=== PATIENT | male | born 1950 | race Caucasian/White ===

== ENCOUNTER 2022-11-03 21:03 | Emergency (ER) | payer OTHER ==
--- OUTSIDE RECORDS SUMMARY | 2022-11-03 21:07 | XMS REPORT | Continuity of Care Document ---
:1950 Author Organization [facility] t Address [address] [id number] Care Team Providers Name Role Phone Woo Stepan Primary Care Physician Markos Attending Clinician Unavailable Alejandrina CHENG, Joel Sykes Attending Clinician Unavailable ENRRIQUE GONZALEZ Attending Clinician Unavailable Jp Mondragon DO Attending Clinician Enrrique Gonzalez DO Attending Clinician Doctor Unassigned, Yantis Attending Clinician Unavailable BRENTON HODGSON Attending Clinician Unavailable Markos Admitting Clinician Unavailable ENRRIQUE GONZALEZ Admitting Clinician Unavailable Enrrique Gonzalez DO Admitting Clinician BRENTON HODGSON Admitting Clinician Unavailable Payers Payer Name Policy Type Policy Number Effective Date Expiration Date S [facility] [id number] 2021 (MEDICARE 00:00:00 REPLACEMENT HMO) Problems Condition Condition Condition Status Onset Resolution Last Treating Co mments Source Name Details Category Date Date Treatment Clinician Date Atypical Atypical Disease Active Unive rs chest pain chest pain 6-25 it y of 00:00: [place] 00 Medical Branch Essential Essential Disease Active Uni vers hypertensi hypertensi 6-25 it y of on on 00:00: [place] 00 Medical Branch Coronary Coronary Disease Active Unive rs artery artery 6-25 ity of disease disease 00:00: [place] involving involving 00 Medi eric yocha dehe yocha dehe Branch coronary coronary artery of artery of yocha dehe yocha dehe heart heart without without angina angina pectoris pectoris Dyslipidem Dyslipidem Disease Active U nivers ia ia 6-25 ity of 00:00: [place] 00 Medical Branch History of History of Disease Active U nivers atrial atrial 6-25 [place]y of fibrillati fibrill[place] Elevated Elevated Disease Active Unive rs brain brain 6-25 ity of natriureti natriureti [place] c peptide c peptide 00 Medi eric (BNP) (BNP) Branch level level Hyperlipid Hyperlipid Problem Active V illage emia emia 2-16 Family 00:00: Practic 00 e Hypertensi Hypertensi Problem Active [facility] ill[facility] ve ve 2-16 Family disorder Disorder 00:00: Practi c 00 e 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 -16 Fa tello e lung e Lung 00:00: Practic disease Disease 00 e No known No known Disease Unive rs active active ity of problems problems [facility] Allergies, Adverse Reactions, Alerts Allergy Allergy Status Severity Reaction(s) Onset Inactive Treating Comm ents Source Name Type Date Date Clinician NO KNOWN Drug Active Univers ALLERGIE Class ity of S [facility] Social History Social Habit Start Date Stop Date Quantity Comments Source History [facility] [place] Alcohol Frequency Medical Branch History [facility] [place] Alcohol Std Drinks Medica l Branch History [facility] [place] Alcohol Binge Medical Bra [facility] Tobacco use and 2022-03-08 2022-03-08 Never used [facility] exposure 00:00:00 00:00:00 Medical Branch Alcohol Comment 2022-03-08 2022-03-08 social [facility] 00:00:00 00:00:00 Medical Branch Education 2022-03-08 2022-03-[address] [facility] 00:00:00 00:00:00 Medical Branch Exposure to 2022-02-25 2022-03-[address] [facility] SARS-CoV-2 (event) 00:00:00 23:27:00 Medica l Branch Sex Ass[birth year] [facility] 00:00:00 00:00:00 Medical Branch Smoking Status Start Date Stop Date Source Never Smoker [facility] Unknown if ever smoked [facility] [place] [facility] Medications Ordered Filled Start Stop Current Ordering Indication Dosage Frequency Signature Comments Components Source Medication Medication Date Date Medication? Clinician (SIG) Name Name aspirin 81 2021- No [id number] 81mg Take 1 Univers mg chewable 6-27 - tablet by it y of tablet 00:00: 04:59 mouth [place] 00 :00 daily for Medical 30 days. Branch aspirin 81 2021- No [id number] 81mg Take 1 Univers mg chewable 6-27 - tablet by it y of tablet 00:00: 04:59 mouth [place] 00 :00 daily for Medical 30 days. Branch sulfur 2021- No [id number] 5mL 5 mL, Univ ers hexafluorid 03-09 Intravenou i ty of e microsphr 15:00: 13:45 s, ONCE, 1 [place] (LUMASON) 00 :00 dose, On Medica l injection 5 Sun Branch mL 03/09/22 at 1000, Routine
farm crew member approving Restricted medication : JERMAINE GAMEZ LISINOPRIL Yes 5mg Take 5 mg Un travis ORAL 6-26 by mouth ity of 11:47: daily. [address] HYDROcodone Yes 1{tbl} Take 1 Un travis -acetaminop 6-26 tablet by ity of hen 10-325 11:47: mouth [place] mg tablet 07 every 6 Medical (six) Branch hours as needed. LISINOPRIL Yes 5mg Take 5 mg Un travis ORAL 6-26 by mouth ity of 11:47: daily. [address] HYDROcodone Yes 1{tbl} Take 1 Un travis -acetaminop 6-26 tablet by ity of hen 10-325 11:47: mouth [place] mg tablet 07 every 6 Medical (six) Branch hours as needed. magnesium Yes [id number] 400mg Take 1 Univers oxide 400 6-26 tablet by ity o f mg (241.3 00:00: mouth 2 [place] mg 00 (two) Medical magnesium) times Branch tablet daily. benzonatate Yes [id number] 100mg Take 1 Univers 100 mg 6-26 capsule by ity of capsule 00:00: mouth [place] 00 every 8 Medical (eight) Branch hours as needed for Cough. magnesium 0 Yes [id number] 400mg Take 1 Univers oxide 400 6-26 tablet by ity o f mg (241.3 00:00: mouth 2 [place] mg 00 (two) Medical magnesium) times Branch tablet daily. benzonatate 0 Yes [id number] 100mg Take 1 Univers 100 mg 6-26 capsule by ity of capsule 00:00: mouth [place] 00 every 8 Medical (eight) Branch hours as needed for Cough. magnesium 0 2022- No [id number] 400mg Take 1 Univers oxide 400 6-26 06-26 tablet by ity of mg (241.3 00:00: 00:00 mouth 2 [place] mg 00 :00 (two) Medical magnesium) times Branch tablet daily for 30 days. enoxaparin 0 Yes 40mg 40 mg, Unive rs (LOVENOX) 6-25 Subcutaneo ity of injection 22:00: [place]ILY, [place] 00 First dose Medical on [facility] 03/08/22 at 1700, Until Discontinu ed, Routine aspirin 0 Yes 81mg 81 mg, Univers chewable 6-25 Oral, ity of tablet 81 14:00: DAILY, [place] mg 00 First dose Medical on [facility] 03/08/22 at 0900, Until Discontinu ed, Routine lisinopriL 0 Yes 5mg 5 mg, Univer s (PRINIVIL,Z 6-25 Oral, ity of ESTRIL) 14:00: DAILY, [place] tablet 5 mg 00 First dose Me dical on [facility] 03/08/22 at 0900, Until Discontinu ed sennosides- 0 Yes 1{tbl} 1 tablet, Univers docusate 6-25 Oral, BID, ity o f sodium 13:00: First dose [place] (SENOKOT-S) 00 on [facility] Medica l 8.6-50 mg 03/08/22 at Bran ch per tablet 0800, 1 tablet Until Discontinu ed, Routine ipratropium 0 Yes 3mL 3 mL, Unive rs -albuteroL 6-25 Inhalation ity of (DUONEB) 13:00: , QID, [place] 0.5 mg-3 00 First dose Medic al mg(2.5 mg on [facility] Branch base)/3 mL 6/25/22 at nebulizer 0800, solution 3 Until mL Discontinu ed, Routine furosemide 2021- No 20mg 20 mg, [facility] ers (LASIX) 03-08 Slow IV ity of injection 13:00: 13:55 Push, [place] 20 mg 00 :00 ONCE, 1 Medical dose, On Branch 03/08/22 at 0800, Routine KCL 2021- No 40meq 40 mEq, Univers (KLOR-CON 03-08 Oral, ity of M20) tablet 07:30: 07:45 ONCE, 1 [place] 40 mEq 00 :00 dose, On Medical Sat Branch 03/08/22 at 0230, Routine magnesium 2021- No 2g 2 g, IV [facility] ers sulfate in 03-08 Piggyback, it y of water 2 07:30: 08:44 Administer Zechariah as gram/50 mL 00 :00 over 60 Medica l (4 %) Minutes, Branch infusion 2 ONCE, 1 g dose, On 03/08/22 at 0230, Routine diphenhydrA Yes 50mg 50 mg, [facility] ers MINE 03-08 Oral, ity of (BENADRYL) 07:18: Q4HPRN, [place] tablet 50 03 Starting Medica l mg on Sat Branch 03/08/22 at 0218, Until Discontinu ed, Routine, Itching ondansetron Yes 4mg 4 mg, Slow Univers (ZOFRAN 03-08 IV Push, ity of (PF)) 07:17: Q6HPRN, [place] injection 4 36 Starting Medi eric mg on Sat Branch 03/08/22 at 0217, Until Discontinu ed, Routine, Nausea and Vomiting (N/V) HYDROcodone 2021- No 2{tbl} 2 tablet, Univers -acetaminop 03-08 Oral, ity of hen (NORCO 07:16: 07:15 Q6HPRN, Zechariah as 5) 5-325 mg 40 :40 Starting Medi eric tablet 2 on Sat Branch tablet 03/08/22 at 0216, Until 03/10/22 at 0215, Routine, Pain (scale 4-6) acetaminoph 2022-0 Yes 650mg 650 mg, Un travis en 03-08 Oral, ity of (TYLENOL) 07:16: Q6HPRN, Liz[place] tablet 650 33 Starting Medic al mg on Sat Branch 03/08/22 at 0216, Until Discontinu ed, Routine, Pain (scale 1-3) methylpredn No 125mg 125 mg, U nivers isolone sod 03-08 06-25 Intravenou i ty of succ 05:00: 07:48 s, Q6H, [place] (SOLU-MEDRO 00 :52 First dose Me dical L) on Sat Branch injection 03/08/22 at 125 mg 0000, Until Discontinu ed, Routine promethazin Yes 5mL Take 5 mL U nivers e-codeine 1-19 by mouth 4 ity of 6.25-10 00:00: (four) [place] mg/5 mL 00 times Medical syrup daily as Branch needed for Cough. sod Yes 1{bottl Use 1 Univers chlor-bicar 1-19 e} Bottle in ity of b-squeez 00:00: each [place] bottle 00 nostril 2 Medical (NEILMED (two) Branch SINUS RINSE times COMPLETE) daily. Use pkdv in hot shower 1 hour before bedtime promethazin Yes 5mL Take 5 mL U nivers e-codeine 1-19 by mouth 4 ity of 6.25-10 00:00: (four) [place] mg/5 mL 00 times Medical syrup daily as Branch needed for Cough. sod Yes 1{bottl Use 1 Univers chlor-bicar 1-19 e} Bottle in ity of b-squeez 00:00: each [place] bottle 00 nostril 2 Medical (NEILMED (two) Branch SINUS RINSE times COMPLETE) daily. Use pkdv in hot shower 1 hour before bedtime promethazin Yes 5mL Take 5 mL U nivers e-codeine 1-19 by mouth 4 ity of 6.25-10 00:00: (four) [place] mg/5 mL 00 times Medical syrup daily as Branch needed for Cough. sod Yes 1{bottl Use 1 Univers chlor-bicar 1-19 e} Bottle in ity of b-squeez 00:00: each [place] bottle 00 nostril 2 Medical (NEILMED (two) Branch SINUS RINSE times COMPLETE) daily. Use pkdv in hot shower 1 hour before bedtime LISINOPRIL 2016- Yes Take by [facility] ers ORAL 4-08 mouth ity of 01:43: daily. [place] 39 Medical Branch nitroglycer 2017-[address] 1 Uni vers in 0.4 mg 4-07 tablet ity of sublingual 00:00: [place] the [place] tablet 00 tongue Medical every 5 Branch (five) minutes as needed for Chest pain. nitroglycer 2016-[address] 1 Uni vers in 0.4 mg 4-07 tablet ity of sublingual 00:00: [place] the [place] tablet 00 tongue Medical every 5 Branch (five) minutes as needed for Chest pain. nitroglycer 2016-[address] 1 Uni vers in 0.4 mg 4-07 tablet ity of sublingual 00:00: [place] the [place] tablet 00 tongue Medical every 5 Branch (five) minutes as needed for Chest pain. hydrocodone hydrocodone No hydrocodon [facility] 10 10 e 10 Family mg-acetamin mg-acetamin mg-acetami Practic ophen 325 ophen 325 nophen 325 e mg tablet mg tablet mg tablet TAKE 1/2 TO TAKE 1/2 TO TAKE 1/2 1 TABLET BY 1 TABLET BY TO 1 MOUTH EVERY MOUTH EVERY TABLET BY 6 HOURS 6 HOURS MOUTH NEEDED FOR NEEDED FOR EVERY 6 PAIN. MAX 4 PAIN. MAX 4 HOURS PER DAY PER DAY NEEDED FOR PAIN. MAX 4 PER DAY lisinopril lisinopril No lisinopril [facility] 5 mg tablet 5 mg tablet 5 mg F amily TAKE 1 TAKE 1 tablet Practic TABLET BY TABLET BY TAKE 1 e MOUTH EVERY MOUTH EVERY TABLET BY DAY DAY MOUTH EVERY DAY Vital Signs Vital Name Observation Time Observation Value Comments Source BP Diastolic 2022-03-21 00:00:00 70 mm[Hg] [facility] Practice Height 2022-03-21 00:00:00 67 [in_i] [facility] BMI (Body Mass 2022-03-21 00:00:00 31.9 kg/m2 [facility] Practice BP Systolic 2022-03-21 00:00:00 129 mm[Hg] [facility] Body Weight 2022-03-21 00:00:00 203.8 [lb_av] [facility] BP Diastolic 2022-03-18 00:00:00 75 mm[Hg] [facility] Height 2022-03-18 00:00:00 67 [in_i] [facility] BMI (Body Mass 2022-03-18 00:00:00 32 kg/m2 [facility] BP Systolic 2022-03-18 00:00:00 128 mm[Hg] [facility] Body Weight 2022-03-18 00:00:00 204.2 [lb_av] [facility] Heart rate 2022-03-09 12:35:00 65 /min [facility] Respiratory rate 2022-03-09 12:35:00 16 /min Univ [facility] Oxygen saturation in 2022-03-09 12:35:00 97 /min [facility] Arterial blood by [facility] Pulse oximetry Branch Systolic blood 2022-03-09 12:33:00 115 mm[Hg] Univer [facility] Diastolic blood 2022-03-09 12:33:00 66 mm[facility]Hg[facility] 2022-03-09 12:33:00 35.89 [facility] weight 2022-03-09 08:54:00 95.981 kg [facility] BMI 2022-03-09 08:54:00 33.14 kg/m2 [facility] Body height 2022-03-08 06:49:00 170.2 cm [facility] BP Diastolic 2022-03-04 00:00:00 72 mm[Hg] [facility] Height 2022-03-04 00:00:00 67 [in_i] [facility] BMI (Body Mass 2022-03-04 00:00:00 32.1 kg/m2 [facility] BP Systolic 2022-03-04 00:00:00 143 mm[Hg] [facility] Body Weight 2022-03-04 00:00:00 205.2 [lb_av] [facility] BP Diastolic 2022-02-21 00:00:00 75 mm[Hg] [facility] Height 2022-02-21 00:00:00 67 [in_i] [facility] BMI (Body Mass 2022-02-21 00:00:00 32 kg/m2 [facility] BP Systolic 2022-02-21 00:00:00 148 mm[Hg] [facility] Body Weight 2022-02-21 00:00:00 204 [lb_av] [facility] BP Systolic 2022-02-19 00:00:00 135 mm[Hg] [facility] Body Weight 2022-02-19 00:00:00 204.8 [lb_av] [facility] BP Diastolic 2022-02-19 00:00:00 77 mm[Hg] [facility] Height 2022-02-19 00:00:00 67 [in_i] [facility] BMI (Body Mass 2022-02-19 00:00:00 32.1 kg/m2 [facility] BP Diastolic 2021-10-30 00:00:00 75 mm[Hg] [facility] Height 2021-10-30 00:00:00 67 [in_i] [facility] BMI (Body Mass 2021-10-30 00:00:00 32.8 kg/m2 [facility] BP Systolic 2021-10-30 00:00:00 134 mm[Hg] [facility] Body Weight 2021-10-30 00:00:00 209.4 [lb_av] [facility] Procedures Procedure Date / Time Performing Clinician Source Performed TRANSTHORACIC ECHO (TTE) 2022-03-09 13:50:00 Enrrique Gonzalez [facility] COMPLETE W/ CONTRAST Medical Bra [facility] LIPID PANEL ([id number])(TOTAL 2022-03-09 08:59:[address] [facility] CHOLESTEROL, Medical Branch TRIGLYCERIDES, HDL) GLYCOSYLATED HEMOGLOBIN 2022-03-09 08:59:[address] [facility] (A1C) Medical [place] BASIC METABOLIC PANEL 2022-03-09 08:59:00 Juana Maldonado [facility] (NA, K, CL, CO2, GLUCOSE, Medica l Branch BUN, CREATININE, CA) XR RIBS 4+ VW RIGHT 2022-03-08 15:56:31 [facility] TROPONIN I 2022-03-08 14:19:00 Vera, [facility] TROPONIN I 2022-03-08 07:53:00 Enrrique Gonzalez [facility] XR CHEST 1 VW 2022-03-08 04:46:[address] [facility] CBC WITH DIFF 2022-03-08 04:43:[address] [facility] N-TERMINAL PRO-BNP 2022-03-08 04:43:00 Singer [facility] COVID-19 (ID NOW RAPID 2022-03-08 04:43:00 Singer [facility] TESTING) Medical Branch LIPASE 2022-03-08 04:43:[address] [facility] MAGNESIUM 2022-03-08 04:43:[address] [facility] TROPONIN I 2022-03-08 04:43:[address] [facility] COMP. METABOLIC PANEL 2022-03-08 04:43:00 Singer Jp [facility] ([id number]) [facility] HB ECG ROUTINE & RHYTHM 2022-03-08 04:34:49 Singer [facility] STRIP [facility] EMERGENCY SERVICES 2019-11-07 06:01:00 Doctor Unassigned, [facility] AGREEMENTS AND Yantis [facility] AUTHORIZATIONS Appendectomy [facility] Operation on Fingernail [facility] Knee Surgery [facility] Plan of Care Planned Activity Planned Date Details Comments Source Diagnostic Test Pending 2022-03-18 testosterone, Sharon alexey Family 00:00:00 total, serum Practice [code = testosterone, total, serum] Instructions [facility] Encounters Start End Encounter Admission Attending Care Care Encounter Source Date/Time Date/Time Type Type Clinicians Facility Department ID 2022-09-18 2022-09-18 Outpatient Simpson_C VFP VFP [id number] [facility] 00:00:00 00:00:00 [id number] Family Practic e 2022-05-17 2022-05-17 Outpatient Simpson_C VFP VFP [id number] [facility] 00:00:00 00:00:00 [id number] Family Practic e 2022-05-17 2022-05-17 Outpatient Simpson_C VFP VFP [id number] [place] [address] 00:00:00 00:00:00 [id number] Family Practic e 2022-03-28 2022-03-28 Outpatient DMG DMG [id number] [facility] 03:20:00 03:20:00 [id number] Medica l Group 2022-03-24 2022-03-24 Outpatient Simpson_C VFP VFP [id number] [place] [address] 12:57:00 12:57:00 [id number] Family Practic e 2022-03-21 2022-03-21 Outpatient Simpson_C VFP VFP [id number] [place] [address] 11:00:00 11:00:00 [id number] Family Practic e 2022-03-21 2022-03-21 [place] - [id number] V illage 00:00:00 00:00:00 [facility] - Pract el MD: [address] ([facility]) [place] [address] , Ph. 2022-03-20 2022-03-20 Outpatient Simpson_C VFP VFP [id number] [place] [address] 11:44:00 11:44:00 [id number] Family Practic e 2022-03-18 2022-03-18 Outpatient Simpson_C VFP VFP [id number] [place] [address] 01:06:00 01:06:00 [id number] Family Practic e 2022-03-18 2022-03-18 [place] [facility] [place] - [id number] V illage 00:00:00 00:00:00 [facility] - Pract el DEL CID: [address]Ch[address] ([facility]) [place] [address] , Ph. 2022-03-15 2022-03-15 Outpatient Simpson_C VFP VFP [id number] [place] [address] 05:30:00 05:30:00 [id number] Family Practic e 2022-03-11 2022-03-11 Transition VIVIANE Tinoco [id number] [facility] 00:00:00 00:00:00 of Care Joel [id number] [id number] [facility] [id number] [facility] 403 Branch 2022-03-07 2022-03-09 Outpatient X VERA [facility] [id number] Univers 23:26:00 11:46:00 ENRRIQUE itclaribel [facility] 2022-03-07 2022-03-09 Emergency Jp Mondragon [facility] [id number] Univers 23:26:00 11:46:00 [facility]rrique [id number] [id number] [facility] [id number] [facility] 081 Branch 2022-03-04 2022-03-04 Outpatient Simpson_C VFP VFP [id number] [place] [address] 02:58:00 02:58:00 [id number] Family Practic e 2022-03-04 2022-03-04 [place] [facility] [place] - [id number] V illage 00:00:00 00:00:00 [facility] Family [facility] - Pract el DEL CID: [address] ([facility]) [place] [address] , Ph. 2022-02-24 2022-02-24 Outpatient Simpson_C VFP VFP [id number] [place] [address] 01:39:00 01:39:00 [id number] Family Practic e 2022-02-21 2022-02-21 Outpatient Simpson_C VFP VFP [id number] [place] [address] 09:43:00 09:43:00 [id number] Family Practic e 2022-02-21 2022-02-21 [place] [facility] - [id number] V illage 00:00:00 00:00:00 [facility] - Pract el DEL CID: 183Chay delong [address] ([facility]) [place] [address] , Ph. 2022-02-19 2022-02-19 Outpatient Simpson_C VFP VFP [id number] [place] [address] 06:09:00 06:09:00 [id number] Family Practic e 2022-02-19 2022-02-19 [place] [facility] [place] - [id number] V illage 00:00:00 00:00:00 [facility] Family Smart Medical - Pract el DEL CID: [address] ([facility]) [place] [address] , Ph. 2022-02-16 2022-02-16 Outpatient Simpson_C VFP VFP [id number] [place] [address] 02:57:00 02:57:00 [id number] Family Practic e 2022-02-02 2022-02-02 Outpatient Simpson_C VFP VFP [id number] [place] [address] 03:52:00 03:52:00 [id number] Family Practic e 2022-02-01 2022-02-01 Outpatient Simpson_C VFP VFP [id number] [place] [address] 11:23:00 11:23:00 [id number] Family Practic e 2022-01-30 2022-01-30 Outpatient Simpson_C VFP VFP [id number] [place] [address] 07:50:00 07:50:00 [id number] Family Practic e 2021-11-29 2021-11-29 Outpatient Simpson_C VFP VFP [id number] [place] [address] 12:59:00 12:59:00 [id number] Family Practic e 2021-11-29 2021-11-29 Outpatient Simpson_C VFP VFP [id number] [place] [address] 12:59:00 12:59:00 [id number] Family Practic e 2021-11-04 2021-11-04 Outpatient Simpson_C VFP VFP [id number] [place] [address] 05:17:00 05:17:00 [id number] Family Practic e 2021-10-30 2021-10-30 Outpatient Simpson_C VFP VFP [id number] [place] [address] 09:42:00 09:42:00 [id number] Family Practic e 2021-10-30 2021-10-30 [place] [facility] - [id number] V illage 00:00:00 00:00:00 [facility] Family Smart [facility] - Pract el DEL CID: [address] ([facility]) [facility] [place] [address] , Ph. 2021-10-29 2021-10-29 Outpatient Simpson_C VFP VF [id number] [id number] [facility] 06:16:00 06:16:00 [id number] Family Practic e 2021-09-13 2021-09-13 Outpatient DMG DMG [id number] [facility] 07:00:00 07:00:00 [id number] Medica l Group 2019-11-07 2019-11-07 Orders Doctor [place] [id number] Univers 00:00:00 00:00:00 Only Unassigned, LUCILA [id number] ity of [place] [facility] [id number] Zechariah as [id number] [address] 2019-10-14 2019-10-14 Emergency X REMA [facility] ERT [id number] Univers 16:36:41 19:15:00 BRENTON robledo [facility] Results Test Description Test Time Test Comments Results Result Comments Source LIPID PANEL (62023)(TOTAL CHOLESTEROL, TRIGLYCERIDES, HDL) 16:23:54 Test Item Value Reference Range Interpretation Comme nts CHOL (test code = 0081328852) 171 mg/dL 120-200 HDL (test code = 7650409495) 48 mg/dL >40 HDLC RATIO (test code = See_Comment [Au tomated message] The 2234443504) system which [employer] nerated this result transmit yolanda reference range: <=5.0. T he reference range was not u sed to interpret this result as normal/abnormal . TRIG (test code = 9584017637) 89 mg/dL 30-170 LDL CHOL (test code = 17217-2) 105 mg/dL See_Comment [Automated message] The system which [employer] nerated this result transmit yolanda reference range: <=160. T he reference range was not u sed to interpret this result as normal/abnormal . VLDL (test code = 8580883276) 18 mg/dL 5-60 Lab Interpretation (test code = Normal 56476-3) [facility]2022-03-09 15:59:09 Test Item Value Reference Range Interpretation Comments Height (test code = in 4572049540) Weight (test code = lbs 5540993520) Systolic BP (test code mmHg = 4092610614) Diastolic BP (test mmHg code = 6935099747) Heart Rate (test code bpm = 5978672376) Tapse (test code = 2.1 cm 6297915099) Radiology Study observation (narrative) (test code = 02523-1) ADDISON (test code = ADDISON) ?Left?Ventricle: Left ventricle size is normal. Normal wall thickness. Normal wall motion. Normal systolic function with a visually estimated EF of 55 - 60%. Diastolic dysfunction. ?Left?Atrium: Left atrium size is normal. ?Tricuspid?Valve: Tricuspid valve structure is grosly normal. Moderate transvalvular regurgitation. Right ventricular systolic pressure is 45-50 mmHg. ?RA pressure is 5-10 mmHg. ?Right?Ventricle: Right ventricle is mildly dilated. Normal systolic function. TAPSE is 2.1 cm. ?Aortic?Valve: Trace transvalvular regurgitation. ?Mitral?Valve: Mildly thickened leaflets. Mild mitral annular calcification. Trace transvalvular regurgitation. ?IVC/SVC: RA pressure is 5-10 mmHg. ?Aorta: Mildly enlarged annulus. [facility] METABOLIC PANEL (NA, K, CL, CO2, GLUCOSE, BUN, CREATININE, CA)2022-03-09 10:46:58 Test Item Value Reference Range Interpretation Comments NA (test code = 137 mmol/L 135-145 9386857774) K (test code = 4.5 mmol/L 3.5-5.0 3966259749) CL (test code = 102 mmol/L 98-108 4277641376) CO2 TOTAL (test code = 26 mmol/L 23-31 6132618730) AGAP (test code = 2-16 9220886791) BUN (test code = 22 mg/dL 7-23 1547099178) GLUCOSE (test code = 250 mg/dL 70-110 H 4477757771) CREATININE (test code = 1.13 mg/dL 0.60-1.25 5751895316) CALCIUM (test code = 9.5 mg/dL 8.6-10.6 6961751669) eGFR (test code = mL/min/1.73m2 2964944006) ADDISON (test code = ADDISON) Association of Glomerular Filtration Rate (GFR) and Staging of Kidney Disease* + --+ --+ ------+| GFR (mL/min/1.73 m2) ?| With Kidney Damage ?| ?Without Kidney Damage+ --------+ --------+ +| ?>90 ?| ?Stage one ?| ? Normal ?+ ---+ ---+ -------+| ?60-89 ?| ?Stage two ?| ? Decreased GFR ? + --+ --+ ------+| ?30-59 ?| ?Stage three ?| ? Stage three ? + --+ --+ ------+| ?15-29 ?| ?Stage four ? | ? Stage four ?+ ---+ ---+ -------+| ?<15 (or dialysis) ? ?| ?Stage five ? | ? Stage five ?+ ---+ ---+ -------+ *Each stage assumes the associated GFR level has been in effect for at least three months. ?Stages 1 to 5, with or without kidney disease, indicate chronic kidney disease. Notes: Determination of stages one and two (with eGFR >59mL/min/1.73 m2) requires estimation of kidney damage for at least three months as defined by structural or functional abnormalities of the kidney, manifested by either:Pathological abnormalities or Markers of kidney damage (including abnormalities in the composition of the blood or urine or abnormalities in imaging tests). Lab Interpretation Abnormal (test code = 49049-5) [facility]2022-03-09 10:44:36 Test Item Value Reference Range Interpretation Comments HGB A1C (test code = 5.7 % 4.0-5.7 4548-4) ADDISON (test code = ADDISON) Reference RangesNormal: <5.7%Prediabetes: 5.7 - 6.4%Diabetes: > 6.5% Lab Interpretation (test Normal code = 47660-9) [facility] [id number] 14:51:51 Test Item Value Reference Interpretation Comments Range TROPONIN I (test 0.003 ng/mL See_Comment [Automated code = 4106274326) message] The system which generated this result transmitted reference range : <=0.034. The reference range was not used to interpret this result as normal/abnormal . ADDISON (test code = Reference (Normal) ADDISON) Range (defined by the 99th percentile reference limit): <= 0.034 ng/mL Note: Cardiac troponin begins to rise 3-4 hours after the onset of ischemia. Repeat in 4-6 hours if the sample was drawn within 3-4 hours of the onset of the symptom and found normal. Diagnosis of myocardial injury is made with acute changes in cTn concentrations with at least one serial sample above the 99th percentile upper reference limit (URL), taken together with the patient's clinical presentation. Biotin has been reported to cause a negative bias, interpret results relative to patient's use of biotin. Lab Interpretation Normal (test code = 95759-2) [facility] [id number] 09:42:51 Test Item Value Reference Interpretation Comments Range TROPONIN I (test 0.004 ng/mL See_Comment [Automated code = 6121623336) message] The system which generated this result transmitted reference range : <=0.034. The reference range was not used to interpret this result as normal/abnormal . ADDISON (test code = Reference (Normal) ADDISON) Range (defined by the 99th percentile reference limit): <= 0.034 ng/mL Note: Cardiac troponin begins to rise 3-4 hours after the onset of ischemia. Repeat in 4-6 hours if the sample was drawn within 3-4 hours of the onset of the symptom and found normal. Diagnosis of myocardial injury is made with acute changes in cTn concentrations with at least one serial sample above the 99th percentile upper reference limit (URL), taken together with the patient's clinical presentation. Biotin has been reported to cause a negative bias, interpret results relative to patient's use of biotin. Lab Interpretation Normal (test code = 29183-8) [facility] [id number] 05:26:05 Test Item Value Reference Interpretation Comments Range TROPONIN I (test 0.003 ng/mL See_Comment [Automated code = 0980980408) message] The system which generated this result transmitted reference range : <=0.034. The reference range was not used to interpret this result as normal/abnormal . ADDISON (test code = Reference (Normal) ADDISON) Range (defined by the 99th percentile reference limit): <= 0.034 ng/mL Note: Cardiac troponin begins to rise 3-4 hours after the onset of ischemia. Repeat in 4-6 hours if the sample was drawn within 3-4 hours of the onset of the symptom and found normal. Diagnosis of myocardial injury is made with acute changes in cTn concentrations with at least one serial sample above the 99th percentile upper reference limit (URL), taken together with the patient's clinical presentation. Biotin has been reported to cause a negative bias, interpret results relative to patient's use of biotin. Lab Interpretation Normal (test code = 04204-4) [facility] [id number] 05:22:48 Test Item Value Reference Range Interpretation Comments NT-proBNP (test code 145 pg/mL See_Comment H [Autom ated = 3254124184) message] The system which generated this result transmitted reference range : <=125. The reference range was not used to interpret this result as normal/abnormal . ADDISON (test code = ADDISON) Biotin has been reported to cause a negative bias, interpret results relative to patient's use of biotin. Lab Interpretation Abnormal (test code = 75817-8) [facility]2022-06-25 05:14:25 Test Item Value Reference Range Interpretation Comments MAGNESIUM (test code = 1706337559) 1.6 mg/dL 1.7-2.4 L Lab Interpretation (test code = Abnormal 55959-8) [facility] MET[facility]OLIC PANEL (54058)2022-03-08 05:13:45 Test Item Value Reference Range Interpretation Comments NA (test code = 137 mmol/L 135-145 9298402817) K (test code = 3.6 mmol/L 3.5-5.0 4231674635) CL (test code = 105 mmol/L 98-108 7027597115) CO2 TOTAL (test code = 24 mmol/L 23-31 8608087221) AGAP (test code = 2-16 0316043986) BUN (test code = 14 mg/dL 7-23 9859858099) GLUCOSE (test code = 142 mg/dL 70-110 H 0952772533) CREATININE (test code = 0.90 mg/dL 0.60-1.25 0361132355) TOTAL BILI (test code = 0.5 mg/dL 0.1-1.2 3540083641) CALCIUM (test code = 8.9 mg/dL 8.6-10.6 2879733159) T PROTEIN (test code = 5.8 g/dL 6.3-8.2 L 2338005910) ALBUMIN (test code = 3.4 g/dL 3.5-5.0 L 4091773131) ALK PHOS (test code = 56 U/L 34-122 5070359229) ALTv (test code = 16 U/L 5-50 1742-6) AST(SGOT) (test code = 21 U/L 13-40 7737026261) eGFR (test code = mL/min/1.73m2 4918172159) ADDISON (test code = ADDISON) Association of Glomerular Filtration Rate (GFR) and Staging of Kidney Disease* + --+ --+ ------+| GFR (mL/min/1.73 m2) ?| With Kidney Damage ?| ?Without Kidney Damage+ --------+ --------+ +| ?>90 ?| ?Stage one ?| ? Normal ?+ ---+ ---+ -------+| ?60-89 ?| ?Stage two ?| ? Decreased GFR ? + --+ --+ ------+| ?30-59 ?| ?Stage three ?| ? Stage three ? + --+ --+ ------+| ?15-29 ?| ?Stage four ? | ? Stage four ?+ ---+ ---+ -------+| ?<15 (or dialysis) ? ?| ?Stage five ? | ? Stage five ?+ ---+ ---+ -------+ *Each stage assumes the associated GFR level has been in effect for at least three months. ?Stages 1 to 5, with or without kidney disease, indicate chronic kidney disease. Notes: Determination of stages one and two (with eGFR >59mL/min/1.73 m2) requires estimation of kidney damage for at least three months as defined by structural or functional abnormalities of the kidney, manifested by either:Pathological abnormalities or Markers of kidney damage (including abnormalities in the composition of the blood or urine or abnormalities in imaging tests). Lab Interpretation Abnormal (test code = 75826-4) [facility]2022-[facility]-25 05:13:45 Test Item Value Reference Range Interpretation Comments LIPASE (test code = 8460660925) 83 U/L 0-220 Lab Interpretation (test code = Normal 04645-0) [facility] [id number] 05:01:25 Test Item Value Reference Range Interpretation Comments WBC (test code = See_Comment [Automated message] 6690-2) The system [employer] generated this result transmitted ref erence range: 4.20 - 1 0.70 10*3/?L. The re ference range was not u sed to interpret this result as normal/abnor mal. RBC (test code = See_Comment [Automated message] 789-8) The system [employer] generated this result transmitted ref erence range: 4.26 - 5 .52 10*6/?L. The re ference range was not u sed to interpret this result as normal/abnor mal. HGB (test code = 13.7 g/dL 12.2-16.4 718-7) HCT (test code = 39.8 % 38.4-49.3 4544-3) MCV (test code = 86.5 fL 81.7-95.6 787-2) MCH (test code = 29.8 pg 26.1-32.7 785-6) MCHC (test code = 34.4 g/dL 31.2-35.0 786-4) RDW-SD (test code 41.6 fL 38.5-51.6 = 41514-0) RDW-CV (test code 13.3 % 12.1-15.4 = 788-0) PLT (test code = See_Comment [Automated message] 777-3) The system [employer] generated this result transmitted ref erence range: 150 - 32 8 10*3/?L. The re ference range was not u sed to interpret this result as normal/abnor mal. MPV (test code = 9.9 fL 9.8-13.0 34258-3) NRBC/100 WBC (test See_Comment [Automat ed message] code = 9350278958) The [employer] which generated this result transmitted ref erence range: 0.0 - 10 .0 /100 WBCs. The refer ence range was not u sed to interpret this result as normal/abnor mal. NRBC x10^3 (test <0.01 See_Comment [Automated message] code = 6330516376) The syste m which generated this result transmitted ref erence range: 10*3/?L. The reference range was not used to interpr et this result as normal/abnormal . GRAN MAT (NEUT) % 45.9 % (test code = 770-8) IMM GRAN % (test 0.10 % code = 9737370007) LYMPH % (test code 45.4 % = 736-9) MONO % (test code 7.0 % = 5905-5) EOS % (test code = 1.3 % 713-8) BASO % (test code 0.3 % = 706-2) GRAN MAT 3.22 10*3/uL 1.99-6.95 x10^3(ANC) (test code = 3401941416) IMM GRAN x10^3 <0.03 0.00-0.06 (test code = 8002237695) LYMPH x10^3 (test 3.19 10*3/uL 1.09-3.23 code = 731-0) MONO x10^3 (test 0.49 10*3/uL 0.36-1.02 code = 742-7) EOS x10^3 (test 0.09 10*3/uL 0.06-0.53 code = 711-2) BASO x10^3 (test <0.03 0.01-0.09 code = 704-7) [facility]"
--- NOTE | 2022-11-03 22:22 | RAD REPORT ---
EXAM DESCRIPTION: RAD - Knee Right 3 View - 11/03/2022 10:11 pm CLINICAL HISTORY: PAIN COMPARISON: No comparisons FINDINGS: Moderately severe tricompartmental osteoarthritis, greatest medial compartment. No fractur e, dislocation or joint effusion.
--- NOTE | 2022-11-03 22:22 | RAD REPORT ---
EXAM DESCRIPTION: RAD - Knee Left 3 View - 11/03/2022 10:11 pm CLINICAL HISTORY: PAIN COMPARISON: Knee Right 3 View dated 11/03/2022 FINDINGS: Moderate tricompartmental osteoarthritis is present. No fracture, dislocation or joint eff usion.
--- NOTE | 2022-11-03 22:37 | RAD REPORT ---
EXAM DESCRIPTION: CT - CTHCSPWOC - 11/03/2022 10:22 pm CLINICAL HISTORY: Trauma, head and neck injury. head trauma COMPARISON: No comparisons TECHNIQUE: Axial 5 mm thick images of the head were obtained. Axial 2 mm thick images of the cervical spine were obtained with sagittal and coronal reconstruction images generated and reviewed. All CT scans are performed using dose optimization technique as appropriate and may include automated exposure control or mA/KV adjustment according to patient size. FINDINGS: CT HEAD WITHOUT CONTRAST: No acute hemorrhage, hydrocephalus or extra-axial collection is identified.Moderate generalized brain atrophy.No areas of brain edema or midline shift. The paranasal sinuses and mastoids are clear.The calvarium is intact. CT CERVICAL SPINE WITHOUT CONTRAST: No fracture or subluxation.Mild lower cervical degenerative spondylosis.No prevertebral soft tissues swelling is identified. IMPRESSION: No acute intracranial or cervical spine findings.
[2022-11-03 22:38] LABS: Absolute Lymphocytes (CBC) 2.7 K/uL (0.7-4.9); Hematocrit 44.3 % (39.6-49.0); Lymphocytes % 33.5 % (15.3-44.8); MCV 87.3 fL (80-100); MPV 7.8 fL (7.6-11.3); RBC Red Blood Cell Count 5.08 M/uL (4.33-5.43)
[2022-11-03 23:00] LABS: Albumin 3.7 g/dL (3.4-5.0); Bilirubin Total 0.5 mg/dL (0.2-1.0); Potassium 4.2 mmol/L (3.5-5.1); Protein, Total 7.3 g/dL (6.4-8.2); Troponin High Sensitivity 8.3 pg/mL (<58.9)
[2022-11-03] MEDS ORDERED: HYDROCODONE/APAP 5/325 MG TAB ONE (23:25)
--- NOTE | 2022-11-03 23:36 | EDPHYS ---
Physician Documentation [facility] Name: Mason Christianson Age: 72 yrs Sex: Male : 1950 Arrival Date: 11/03/2022 Time: 21:28 Bed 18 Private MD: ED Physician Pacheco Zapata HPI: 11/03 22:56 This 72 yrs old Male presents to ER via EMS with complaints of Head injury. rt 22:56 The patient or guardian reports a laceration. Patient presents to the ED with an injury rt to the head. Patient reports a trip and fall. He did report a loss of consciousness that occurred after the fall, not causing the fall. Reports pain to the bilateral knees. Reports a small laceration to the right eyebrow, no neck pain, no other complaints. Symptoms are moderate severity, no other aggravating or alleviating factors.. Historical: - Allergies: 21:55 No Known Allergies; ll3 - Home Meds: 21:55 "blood pressure med" [Active]; Hydrocodone-Acetaminophen Oral [Active]; ll3 - PMHx: 21:55 CAD; Hypertensive disorder; ll3 - PSHx: 21:55 None; ll3 - Immunization history:: Client reports receiving the 2nd dose of the Covid vaccine. - Social history:: Smoking status: Patient denies any tobacco usage or history of. - Family history:: not pertinent. ROS: 23:43 Constitutional: Negative for fever, chills, and weight loss, Neck: Negative for injury, rt pain, and swelling. 23:43 Cardiovascular: Negative for chest pain, palpitations, and edema, Respiratory: Negative for shortness of breath, cough, wheezing, and pleuritic chest pain, Abdomen/GI: Negative for abdominal pain, nausea, vomiting, diarrhea, and constipation. 23:43 MS/extremity: Positive for Bilateral knee pain. 23:43 Neuro: Positive for headache, loss of consciousness, Negative for syncope. Exam: 23:43 Head/Face: Normocephalic, atraumatic. Neck: Trachea midline, no thyromegaly or masses rt palpated, and no cervical lymphadenopathy. Supple, full range of motion without nuchal rigidity, or vertebral point tenderness. No Meningismus. Chest/axilla: Normal chest wall appearance and motion. Nontender with no deformity. No lesions are appreciated. Cardiovascular: Regular rate and rhythm with a normal S1 and S2. No gallops, murmurs, or rubs. Normal PMI, no JVD. No pulse deficits. Respiratory: Lungs have equal breath sounds bilaterally, clear to auscultation and percussion. No rales, rhonchi or wheezes noted. No increased work of breathing, no retractions or nasal flaring. Abdomen/GI: Soft, non-tender, with normal bowel sounds. No distension or tympany. No guarding or rebound. No evidence of tenderness throughout. Skin: Warm, dry with normal turgor. Normal color with no rashes, no lesions, and no evidence of cellulitis. MS/ Extremity: Pulses equal, no cyanosis. Neurovascular intact. Full, normal range of motion. Neuro: Awake and alert, GCS 15, oriented to person, place, time, and situation. Cranial nerves II-XII grossly intact. Motor strength 5/5 in all extremities. Sensory grossly intact. Cerebellar exam normal. Normal gait. Psych: Awake, alert, with orientation to person, place and time. Behavior, mood, and affect are within normal limits. 23:43 Head/face: 0.5 cm laceration to the right eyebrow, 0.5 laceration lateral to the right eye, no active bleeding, no foreign bodies identified.. 23:43 Musculoskeletal/extremity: Mild tenderness to bilateral knees, no deformities noted. 23:43 ECG was reviewed by the Attending Physician. rt Vital Signs: 21:52 BP 137 / 65; Pulse 65; Resp 17; Temp 98.4(TE); Pulse Ox 97% on R/A; Weight 90.72 kg ll3 (R); Height 5 ft. 7 in. (170.18 cm) (R); Pain 9/10; 21:52 Body Mass Index 31.32 (90.72 kg, 170.18 cm) ll3 [place] Coma Score: 23:43 Eye Response: spontaneous(4). Verbal Response: oriented(5). Motor Response: obeys rt commands(6). Total: 15. Laceration: 23:43 Wound Repair of 0.5cm ( 0.2in ) subcutaneous laceration to right eye. Linear shaped.. rt Distal neuro/vascular/tendon intact. Skin closed with 1-0 Prolene using SteriStrips. Patient tolerated well. MDM: 21:28 Patient medically screened. rt 23:43 Differential diagnosis: Laceration, foreign body, intracranial hemorrhage, skull rt fracture. Data reviewed: vital signs, nurses notes, lab test result(s), EKG, radiologic studies. Care significantly affected by the following chronic conditions: Hypertension. ED course: Wounds closed with Steri-Strips per patient's request, cleanse prior to closure. No evidence for syncope.. 11/03 21:29 Order name: CBC with Diff rt 11/03 21:29 Order name: CMP rt 11/03 21:29 Order name: Troponin High Sensitivity rt 11/03 22:45 Order name: CBC with Automated Diff; Complete Time: 23:18 EDMS 11/03 23:01 Order name: Comprehensive Metabolic Panel; Complete Time: 23:18 EDMS 11/03 23:01 Order name: Troponin High Sensitivity; Complete Time: 23:18 EDMS 11/03 21:29 Order name: CT Head C Spine rt 11/03 21:29 Order name: Knee Left 3 View XRAY rt 11/03 21:29 Order name: Knee Right 3 View XRAY rt 11/03 21:29 Order name: EKG Strip; Complete Time: 22:43 rt 11/03 22:23 Order name: RAD; Complete Time: 22:37 EDMS 11/03 22:23 Order name: RAD; Complete Time: 22:37 EDMS 11/03 22:39 Order name: CT; Complete Time: 22:45 EDMS 11/03 21:29 Order name: Wound Care; Complete Time: 23:44 rt EC:43 Rate is 67 beats/min. Rhythm is regular, Normal Sinus Rhythm with No ectopy. QRS [place] rt is Normal. HI interval is normal. QRS interval is normal. QT interval is normal. No Q waves. T waves are Normal. No ST changes noted. Interpreted by me. Administered Medications: 23:24 Drug: HYDROcodone-acetaminophen 5 mg-325 mg 1 tabs Route: PO; aa9 23:44 Follow up: Response: No adverse reaction aa9 Disposition Summary: 11/03/22 23:35 Discharge Ordered Location: Home rt Condition: Stable rt Diagnosis - Fall on same level, unspecified rt - Facial laceration rt Followup: rt - With: Private Physician - When: 2 - 3 days - Reason: Discharge Instructions: - Discharge Summary Sheet rt - Facial Laceration rt Forms: - Medication Reconciliation Form rt - Thank You Letter rt - Antibiotic Education rt - Prescription Opioid Use rt Signatures: Dispatcher [employer] Bhavna Modi RN RN ll3 Karmen Bales RN RN aa9 Pacheco Zapata MD MD rt
--- NOTE | 2022-11-03 23:36 | ER ---
Nurse's Notes [facility] Name: Mason Christianson Age: 72 yrs Sex: Male : 1950 Arrival Date: 11/03/2022 Time: 21:28 Bed 18 Private MD: Diagnosis: Fall on same level, unspecified;Facial laceration Presentation: 11/03 21:52 Chief complaint: Patient states: Toned out for a syncopal episode, pt states he was ll3 pumping gas when he became dizzy and passed out, + LOC, denies taking blood thinners, abrasion to right eyebrow, c/o bilateral knee pain/weakness. Coronavirus screen: Vaccine status: Patient reports receiving the 2nd dose of the covid vaccine. At this time, the client does not indicate any symptoms associated with coronavirus-19. Ebola Screen: No symptoms or risks identified at this time. Initial Sepsis Screen: Does the patient meet any 2 criteria? No. Patient's initial sepsis screen is negative. Does the patient have a suspected source of infection? No. Patient's initial sepsis screen is negative. Risk Assessment: Do you want to hurt yourself or someone else? Patient reports no desire to harm self or others. Onset of symptoms was November 03, 2022. Care prior to arrival: None. 21:52 Method Of Arrival: EMS: [facility] 3 21:52 Acuity: HERLINDA 3 ll3 Triage Assessment: 21:55 General: Appears uncomfortable, Behavior is calm, cooperative. Pain: Complains of pain ll3 in right judaism, right knee and left knee Pain does not radiate. Pain currently is 9 out of 10 on a pain scale. Neuro: Level of Consciousness is awake, alert, obeys commands, Oriented to person, place, time, situation. Cardiovascular: Patient's skin is warm and dry. Musculoskeletal: Circulation, motion, and sensation intact. Reports pain in right knee and left knee. Historical: - Allergies: 21:55 No Known Allergies; ll3 - Home Meds: :55 "blood pressure med" [Active]; Hydrocodone-Acetaminophen Oral [Active]; ll3 - PMHx: 21:55 CAD; Hypertensive disorder; ll3 - PSHx: 21:55 None; ll3 - Immunization history:: Client reports receiving the 2nd dose of the Covid vaccine. - Social history:: Smoking status: Patient denies any tobacco usage or history of. - Family history:: not pertinent. Screenin/21 00:03 [facility] ED Fall Risk Assessment (Adult) History of falling in the last 3 months, aa9 including since admission Yes- single mechanical fall (1 pt) Confusion or Disorientation No (0 pts) Intoxicated or Sedated No (0 pts) Impaired Gait Yes (1 pt) Mobility Assist Device Used Yes (1 pt) Altered Elimination No (0 pt) Score/Fall Risk Level 3 or more points = High Risk Maintained a safe environment, Educated pt \\T\\ family on fall prevention, incl call for assistance when getting out of bed. Abuse screen: Denies threats or abuse. Denies injuries from another. Nutritional screening: No deficits noted. Tuberculosis screening: No symptoms or risk factors identified. Assessment: 11/03 21:59 General: See triage assessment. ll3 Vital Signs: 21:52 BP 137 / 65; Pulse 65; Resp 17; Temp 98.4(TE); Pulse Ox 97% on R/A; Weight 90.72 kg ll3 (R); Height 5 ft. 7 in. (170.18 cm) (R); Pain 9/10; 21:52 Body Mass Index 31.32 (90.72 kg, 170.18 cm) ll3 [place] Coma Score: 23:43 Eye Response: spontaneous(4). Verbal Response: oriented(5). Motor Response: obeys rt commands(6). Total: 15. ED Course: 21:28 Patient arrived in ED. bb 21:28 Pacheco Zapata MD is Attending Physician. rt 21:55 Triage completed. ll3 21:55 Arm band placed on Patient placed in an exam room, on a stretcher, on pulse oximetry. ll3 22:15 CMP Sent. ll3 22:15 Troponin High Sensitivity Sent. ll3 22:15 CBC with Diff Sent. ll3 22:15 Initial lab(s) drawn, by me, sent to lab. Inserted saline lock: 20 gauge in right ll3 antecubital area, using aseptic technique. Blood collected. 23:09 Karmen Bales, RN is Primary Nurse. aa9 11/04 00:03 Patient has correct armband on for positive identification. Bed in low position. Side aa9 rails up X2. 00:03 No provider procedures requiring assistance completed. IV discontinued, intact, aa9 bleeding controlled, No redness/swelling at site. Pressure dressing applied. Administered Medications: 11/03 23:24 Drug: HYDROcodone-acetaminophen 5 mg-325 mg 1 tabs Route: PO; aa9 23:44 Follow up: Response: No adverse reaction aa9 Medication: 11/04 00:03 VIS not applicable for this client. aa9 Outcome: 11/03 23:35 Discharge ordered by . rt 11/04 00:04 Discharged to home via wheelchair, with friend. aa9 Condition: stable Discharge instructions given to patient, Instructed on discharge instructions, follow up and referral plans. Demonstrated understanding of instructions, follow-up care. 00:04 Patient left the ED. aa9 Signatures: Ashli Calles RN RN Bhavna Woodward RN RN ll3 Karmen Bales RN RN aa9 Pacheco Zapata MD MD rt
[2022-11-04 00:59] VITALS: BP 137/65; TEMP 98.4; O2SAT 97
--- NOTE | 2022-11-05 15:24 | EKG ---
Test Date: 2022-11-03 Test Time: 22:39:50 Vertical Borer: SARAH MEASUREMENT RESULTS: Intervals: Rate: 67 [place]: 150 QRSD: 78 QT: 404 QTc: 426 [place]: P: 46 [place]: 150 QRS: -3 T: 70 INTERPRETIVE STATEMENTS: Normal sinus rhythm Normal ECG No previous ECG available for comparison Electronically Signed On 11-05-22 15:20:33 LOADING UNIT OPERATOR by Gabriel Le
== END 2022-11-04 00:04 | disposition home or self-care (01) ==
LOC: ER 21:03
PROC: 0HQ1XZZ Repair Face Skin, External Approach (ICD-10-PCS; principal; 2022-11-04)
DX: S01.111A Laceration without foreign body of right eyelid and periocular area, initial encounter (principal); W18.30XA Fall on same level, unspecified, initial encounter; I10 Essential (primary) hypertension; I25.10 Atherosclerotic heart disease of native coronary artery without angina pectoris; M25.562 Pain in left knee; M25.561 Pain in right knee
CPT/HCPCS: 36415; 70450; 72125; 80053; 84484; 85025; 93005; 99284